=== PATIENT | female | born 1935 | race Caucasian/White ===

== ENCOUNTER 2018-05-04 19:18 | Emergency (ER) | payer MEDICARE, MEDICAID ==
[~2018-05-04] VITALS: Ht 157.5 cm; Wt 53.5 kg
[2018-05-04 19:20] VITALS: BP 220/103
== END 2018-05-04 20:30 | disposition left against medical advice (07) ==
LOC: EDBD 19:18 → ER 19:21
DX: R07.9 Chest pain, unspecified (principal); Z53.21 Procedure and treatment not carried out due to patient leaving prior to being seen by health care provider
CPT/HCPCS: 93005

== ENCOUNTER 2022-11-27 17:26 | Inpatient (IN) | payer MEDICARE, OTHER, MEDICAID ==
[~2022-11-27] VITALS: Ht 175.3 cm; Wt 54.1 kg
[2022-11-27] MEDS ORDERED: FUROSEMIDE 20 MG/2 ML VIAL IV ONE (17:45)
[2022-11-27 17:53] VITALS: PULSE 84; RESP 20; O2SAT 99
[2022-11-27 18:47] LABS: Calcium 8.9 mg/dL (8.5-10.1); Potassium 3.6 mmol/L (3.5-5.1)
[2022-11-27 18:49] LABS: BUN/Creatinine Ratio 28.6 (10.0-20.0)
[2022-11-27 18:51] LABS: Basophils # (auto) 0.1 10 ^3/uL (0-0.2); Basophils % (auto) 0.4 % (0.0-2.0); Eosinophils # (auto) 0.1 10 ^3/uL (0-0.8); Eosinophils % (auto) 0.8 % (0.0-7.0); Hematocrit 36.3 % (36.0-46.0); Hemoglobin 11.7 g/dL (12.2-16.2); Lymphocytes % (auto) 8.3 % (10.0-50.0); Mean Corpuscular Hgb Conc. 32.1 g/dL (32.0-36.0); Mean Corpuscular Volume 93.5 fL (80.0-100.0); Monocytes # (auto) 0.7 10 ^3/uL (0-1.3); Monocytes % (auto) 5.8 % (0.0-12.0); Neutrophils # (auto) 10.6 10 ^3/uL (1.6-8.6); Neutrophils % (auto) 84.7 % (37.0-80.0); Red Blood Cells 3.88 10^6/uL (4.0-5.20); Red Cell Distribution Width 14.4 % (11.8-14.3); White Blood Cell 12.5 10^3/uL (4.4-10.8)
[2022-11-27 18:51] LABS: Base Excess 14.5 mmol/L (-2.0-2.0)
[2022-11-27 18:52] LABS: Bilirubin, Total 0.3 mg/dL (0.2-1.0); Total Protein 6.7 g/dL (6.4-8.2)
[2022-11-27 18:59] LABS: Urine Bacteria NONE SEEN /hpf (None Seen); Urine Blood TRACE /uL (Negative); Urine Clarity Clear (Clear); Urine Protein, UAD TRACE (Negative); Urine Specific Gravity 1.009 (1.001-1.035); Urine Urobilinogen Normal (Negative); Urine WBC 1 /hpf (0 - 5)
[2022-11-27] MEDS ORDERED: cefTRIAXone 1GM/50ML D5W 50 ML IV ONE (19:00)
[2022-11-27] MEDS ORDERED: AZITHROMYCIN 500MG/ 250ML 250 ML IV ONE (19:00)
[2022-11-27 19:02] LABS: Urine Color Straw (Yellow)
[2022-11-27 19:30] VITALS: PULSE 82; RESP 12; O2SAT 93
[2022-11-27 20:37] LABS: Base Excess 16.7 mmol/L (-2.0-2.0)
[2022-11-27] MEDS ORDERED: ASPirin-EC 81 mg tab PO ONE (20:45)
[2022-11-27] MEDS ORDERED: IPRATROPIUM BROM 0.5 MG/2.5ML INH SOL NEB PRN (21:45)
[2022-11-27] MEDS ORDERED: ALBUTEROL SULF 2.5 MG/0.5ML(0.5%) NEB SOLN NEB PRN (21:45)
[2022-11-27] MEDS ORDERED: hydrALAZINE HCL 20 MG/ML VL IV PRN (21:45)
[2022-11-27] MEDS ORDERED: ONDANSETRON HCL 4 MG/2 ML VIAL IV PRN (21:45)
[2022-11-27] MEDS ORDERED: NITROGLYCERIN 0.4 MG SL TAB SL PRN (21:45)
[2022-11-27] MEDS ORDERED: ACETAMINOPHEN 325 MG TAB PO PRN (21:45)
[2022-11-27] MEDS ORDERED: MORPHINE SULFATE INJ 2 MG/ml SYRG IV PRN (21:45)
[2022-11-27 21:51] VITALS: BP 160/86; PULSE 80; RESP 14; TEMP 97.7; O2SAT 99
[2022-11-27 22:00] VITALS: BP 77/44; PULSE 62; O2SAT 95
[2022-11-27] MEDS ORDERED: ALBUMIN 25% 100 ML IV ONE (22:30)
[2022-11-27] MEDS ORDERED: SODIUM CHLORIDE 0.9% 500 ML IV ONE (22:30)
[2022-11-27] MEDS: CARVEDILOL 12.5 MG TAB PO SCH (22:38)
[2022-11-27] MEDS: SODIUM CHLOR 0.9% PF (SALINE LOCK) 10ML VIAL/SYR IV SCH (22:38)
[2022-11-27] MEDS: FAMOTIDINE (10MG/ML) 2ML VL IV SCH (22:49)
[2022-11-28] VITALS (11 sets, daily range): BP systolic 79–132; BP diastolic 41–73; PULSE 59–92; RESP 15–20; TEMP 98.4; O2SAT 89–97
[2022-11-28 04:20] LABS: Base Excess 17.6 mmol/L (-2.0-2.0)
[2022-11-28 05:01] LABS: Basophils # (auto) 0.1 10 ^3/uL (0-0.2); Basophils % (auto) 0.7 % (0.0-2.0); Eosinophils # (auto) 0.1 10 ^3/uL (0-0.8); Eosinophils % (auto) 0.5 % (0.0-7.0); Hematocrit 34.7 % (36.0-46.0); Hemoglobin 11.2 g/dL (12.2-16.2); Lymphocytes # (auto) 1.1 10 ^3/uL (0.4-5.4); Lymphocytes % (auto) 7.6 % (10.0-50.0); Mean Corpuscular Hemoglobin 30.2 pg (28.0-32.0); Mean Corpuscular Hgb Conc. 32.3 g/dL (32.0-36.0); Mean Corpuscular Volume 93.3 fL (80.0-100.0); Monocytes # (auto) 0.9 10 ^3/uL (0-1.3); Monocytes % (auto) 6.5 % (0.0-12.0); Neutrophils # (auto) 12.4 10 ^3/uL (1.6-8.6); Neutrophils % (auto) 84.7 % (37.0-80.0); Red Blood Cells 3.72 10^6/uL (4.0-5.20); White Blood Cell 14.6 10^3/uL (4.4-10.8)
[2022-11-28 05:19] LABS: Albumin 2.8 g/dL (3.4-5.0); Calcium 8.8 mg/dL (8.5-10.1); Potassium 3.3 mmol/L (3.5-5.1)
[2022-11-28 05:21] LABS: BUN/Creatinine Ratio 28.9 (10.0-20.0)
[2022-11-28 05:24] LABS: Bilirubin, Total 0.6 mg/dL (0.2-1.0); Total Protein 6.1 g/dL (6.4-8.2)
[2022-11-28] MEDS: SODIUM CHLOR 0.9% PF (SALINE LOCK) 10ML VIAL/SYR IV SCH ×3 (06:02→22:08)
[2022-11-28] MEDS: LEVOTHYROXINE SODIUM 112 MCG TAB PO SCH (07:06)
[2022-11-28 07:13] LABS: COVID19 ANTIGEN SOFIA FIA NEGATIVE (NEGATIVE); Respiratory Syncytial Virus Ag Negative
[2022-11-28 07:23] LABS: Rapid Influenza A Negative (Negative)
[2022-11-28 07:29] LABS: Rapid Influenza B Positive (Negative)
[2022-11-28] MEDS: cefTRIAXone 1GM/50ML D5W 50 ML IV SCH (09:11)
[2022-11-28] MEDS: CARVEDILOL 12.5 MG TAB PO SCH ×2 (10:42→22:00)
[2022-11-28] MEDS: DexAMETHasone SOD PHOS 10MG/1ML VIAL INJ IV SCH (10:51)
[2022-11-28] MEDS: AZITHROMYCIN 500MG/ 250ML 250 ML IV SCH (10:56)
[2022-11-28] MEDS: FAMOTIDINE (10MG/ML) 2ML VL IV SCH ×2 (10:56→22:22)
[2022-11-28] MEDS: FUROSEMIDE 20 MG/2 ML VIAL IV SCH (10:56)
[2022-11-28] MEDS: ASPirin 81 mg TAB PO SCH (10:56)
[2022-11-28] MEDS ORDERED: POTASSIUM EFFERVESENT TAB 25 MEQ PO ONE (15:15)
[2022-11-28] MEDS: IPRATROPIUM BROM 0.5 MG/2.5ML INH SOL NEB SCH ×2 (18:00→22:52)
[2022-11-28] MEDS: ALBUTEROL SULF 2.5 MG/0.5ML(0.5%) NEB SOLN NEB SCH ×2 (18:00→22:52)
[2022-11-28] MEDS: OSELTAMIVIR 30 MG CAP PO SCH (22:21)
[2022-11-28] MEDS: BUDESONIDE (INHALATION) 0.5 MG/2 ML NEB NEB SCH (22:56)
[2022-11-29] VITALS (20 sets, daily range): BP systolic 103–144; BP diastolic 54–82; PULSE 65–86; RESP 16–20; TEMP 97.1–98.4; O2SAT 90–99
[2022-11-29] MEDS ORDERED: MELATONIN 5 MG TAB PO ONE (00:45)
[2022-11-29] MEDS: IPRATROPIUM BROM 0.5 MG/2.5ML INH SOL NEB SCH ×6 (02:25→23:10)
[2022-11-29] MEDS: ALBUTEROL SULF 2.5 MG/0.5ML(0.5%) NEB SOLN NEB SCH ×6 (02:25→23:10)
[2022-11-29] MEDS ORDERED: GABA-339 PO (03:37)
[2022-11-29] MEDS ORDERED: LEVO112T4 PO (03:38)
[2022-11-29 06:32] LABS: Basophils # (auto) 0 10 ^3/uL (0-0.2); Basophils % (auto) 0.2 % (0.0-2.0); Eosinophils # (auto) 0 10 ^3/uL (0-0.8); Hematocrit 36.3 % (36.0-46.0); Hemoglobin 11.9 g/dL (12.2-16.2); Lymphocytes % (auto) 7.3 % (10.0-50.0); Mean Corpuscular Hemoglobin 30.1 pg (28.0-32.0); Mean Corpuscular Hgb Conc. 32.8 g/dL (32.0-36.0); Mean Corpuscular Volume 91.6 fL (80.0-100.0); Monocytes # (auto) 0.7 10 ^3/uL (0-1.3); Neutrophils # (auto) 12.5 10 ^3/uL (1.6-8.6); Neutrophils % (auto) 87.5 % (37.0-80.0); Red Blood Cells 3.96 10^6/uL (4.0-5.20); Red Cell Distribution Width 14.1 % (11.8-14.3); White Blood Cell 14.3 10^3/uL (4.4-10.8)
[2022-11-29] MEDS: LEVOTHYROXINE SODIUM 112 MCG TAB PO SCH (06:42)
[2022-11-29] MEDS: SODIUM CHLOR 0.9% PF (SALINE LOCK) 10ML VIAL/SYR IV SCH ×3 (06:45→22:00)
[2022-11-29 06:50] LABS: Calcium 9.4 mg/dL (8.5-10.1); Potassium 3.4 mmol/L (3.5-5.1)
[2022-11-29 06:58] LABS: BUN/Creatinine Ratio 24.5 (10.0-20.0)
[2022-11-29] MEDS: BUDESONIDE (INHALATION) 0.5 MG/2 ML NEB NEB SCH ×2 (07:14→19:01)
[2022-11-29] MEDS: cefTRIAXone 1GM/50ML D5W 50 ML IV SCH (09:51)
[2022-11-29] MEDS: FUROSEMIDE 20 MG/2 ML VIAL IV SCH (09:52)
[2022-11-29] MEDS: DexAMETHasone SOD PHOS 10MG/1ML VIAL INJ IV SCH (09:52)
[2022-11-29] MEDS: AZITHROMYCIN 500MG/ 250ML 250 ML IV SCH (09:53)
[2022-11-29] MEDS: FAMOTIDINE (10MG/ML) 2ML VL IV SCH ×2 (09:53→22:29)
[2022-11-29] MEDS: CARVEDILOL 12.5 MG TAB PO SCH ×2 (09:54→22:30)
[2022-11-29] MEDS: ASPirin 81 mg TAB PO SCH (09:54)
[2022-11-29] MEDS: OSELTAMIVIR 30 MG CAP PO SCH ×2 (13:51→22:30)
[2022-11-30] VITALS (15 sets, daily range): BP systolic 105–154; BP diastolic 50–87; PULSE 60–81; RESP 16–20; TEMP 97.8–98.7; O2SAT 91–98
[2022-11-30] MEDS: IPRATROPIUM BROM 0.5 MG/2.5ML INH SOL NEB SCH ×6 (02:00→21:53)
[2022-11-30] MEDS: ALBUTEROL SULF 2.5 MG/0.5ML(0.5%) NEB SOLN NEB SCH ×6 (02:00→21:53)
[2022-11-30] MEDS: HYDROcodone-ACET 5/325MG TAB PO PRN (03:49)
[2022-11-30] MEDS: SODIUM CHLOR 0.9% PF (SALINE LOCK) 10ML VIAL/SYR IV SCH ×3 (05:31→22:11)
[2022-11-30] MEDS: BUDESONIDE (INHALATION) 0.5 MG/2 ML NEB NEB SCH ×2 (06:00→18:08)
[2022-11-30] MEDS: LEVOTHYROXINE SODIUM 112 MCG TAB PO SCH (06:26)
[2022-11-30 06:37] LABS: Basophils # (auto) 0.1 10 ^3/uL (0-0.2); Basophils % (auto) 0.7 % (0.0-2.0); Eosinophils # (auto) 0 10 ^3/uL (0-0.8); Eosinophils % (auto) 0.1 % (0.0-7.0); Hematocrit 35.8 % (36.0-46.0); Hemoglobin 11.7 g/dL (12.2-16.2); Lymphocytes # (auto) 1.5 10 ^3/uL (0.4-5.4); Lymphocytes % (auto) 13.5 % (10.0-50.0); Mean Corpuscular Hgb Conc. 32.7 g/dL (32.0-36.0); Mean Corpuscular Volume 91.8 fL (80.0-100.0); Monocytes # (auto) 0.8 10 ^3/uL (0-1.3); Monocytes % (auto) 7.2 % (0.0-12.0); Neutrophils # (auto) 8.4 10 ^3/uL (1.6-8.6); Neutrophils % (auto) 78.5 % (37.0-80.0); Nucleated Red Blood Cells % 0.1 %; Red Cell Distribution Width 14.1 % (11.8-14.3); White Blood Cell 10.8 10^3/uL (4.4-10.8)
[2022-11-30 07:01] LABS: Calcium 9.3 mg/dL (8.5-10.1); Potassium 3.3 mmol/L (3.5-5.1)
[2022-11-30] MEDS: ASPirin 81 mg TAB PO SCH (09:45)
[2022-11-30] MEDS: CARVEDILOL 12.5 MG TAB PO SCH ×2 (09:46→22:00)
[2022-11-30] MEDS: FUROSEMIDE 20 MG/2 ML VIAL IV SCH (09:48)
[2022-11-30] MEDS: cefTRIAXone 1GM/50ML D5W 50 ML IV SCH (09:49)
[2022-11-30] MEDS: OSELTAMIVIR 30 MG CAP PO SCH ×2 (09:50→22:10)
[2022-11-30] MEDS ORDERED: DexAMETHasone SOD PHOS 10MG/1ML VIAL INJ IV SCH (10:00)
[2022-11-30] MEDS ORDERED: POTASSIUM EFFERVESENT TAB 25 MEQ PO ONE (13:45)
[2022-11-30] MEDS: AZITHROMYCIN 500MG/ 250ML 250 ML IV SCH (14:44)
[2022-11-30] MEDS: Ensure HIGH Protein Chocolate 8oz Bottle PO SCH (18:00)
[2022-11-30] MEDS: PANTOPRAZOLE 40 MG TAB PO SCH (19:49)
[2022-11-30] MEDS: GABAPENTIN 300 MG CAP PO SCH (22:10)
[2022-12-01] VITALS (10 sets, daily range): BP systolic 92–152; BP diastolic 57–89; PULSE 54–73; RESP 16–20; TEMP 97.8–98.5; O2SAT 90–97
[2022-12-01] MEDS: DOCUSATE SOD 100 MG CAP PO PRN ×2 (06:02→22:28)
[2022-12-01] MEDS: LEVOTHYROXINE SODIUM 112 MCG TAB PO SCH (06:02)
[2022-12-01] MEDS: GABAPENTIN 300 MG CAP PO SCH ×3 (06:02→22:28)
[2022-12-01] MEDS: SODIUM CHLOR 0.9% PF (SALINE LOCK) 10ML VIAL/SYR IV SCH ×3 (06:07→22:29)
[2022-12-01 06:31] LABS: Basophils # (auto) 0 10 ^3/uL (0-0.2); Basophils % (auto) 0.2 % (0.0-2.0); Eosinophils # (auto) 0 10 ^3/uL (0-0.8); Eosinophils % (auto) 0.4 % (0.0-7.0); Hematocrit 37.3 % (36.0-46.0); Hemoglobin 12.2 g/dL (12.2-16.2); Lymphocytes # (auto) 2.1 10 ^3/uL (0.4-5.4); Lymphocytes % (auto) 20.1 % (10.0-50.0); Mean Corpuscular Hgb Conc. 32.7 g/dL (32.0-36.0); Mean Corpuscular Volume 91.7 fL (80.0-100.0); Monocytes # (auto) 0.9 10 ^3/uL (0-1.3); Monocytes % (auto) 8.9 % (0.0-12.0); Neutrophils # (auto) 7.2 10 ^3/uL (1.6-8.6); Neutrophils % (auto) 70.4 % (37.0-80.0); Nucleated Red Blood Cells % 0.1 %; Red Blood Cells 4.07 10^6/uL (4.0-5.20); White Blood Cell 10.2 10^3/uL (4.4-10.8)
[2022-12-01 06:42] LABS: Potassium 3.8 mmol/L (3.5-5.1)
[2022-12-01 06:47] LABS: Albumin 2.6 g/dL (3.4-5.0); BUN/Creatinine Ratio 46.8 (10.0-20.0); Bilirubin, Total 0.4 mg/dL (0.2-1.0); Calcium 8.8 mg/dL (8.5-10.1); Total Protein 5.8 g/dL (6.4-8.2)
[2022-12-01] MEDS: ALBUTEROL SULF 2.5 MG/0.5ML(0.5%) NEB SOLN NEB SCH ×4 (07:33→14:38)
[2022-12-01] MEDS: IPRATROPIUM BROM 0.5 MG/2.5ML INH SOL NEB SCH ×4 (07:33→14:38)
[2022-12-01] MEDS: BUDESONIDE (INHALATION) 0.5 MG/2 ML NEB NEB SCH (07:33)
[2022-12-01] MEDS: Ensure HIGH Protein Chocolate 8oz Bottle PO SCH ×2 (08:00→18:00)
[2022-12-01] MEDS: PANTOPRAZOLE 40 MG TAB PO SCH (09:58)
[2022-12-01] MEDS: cefTRIAXone 1GM/50ML D5W 50 ML IV SCH (09:58)
[2022-12-01] MEDS: FUROSEMIDE 20 MG TAB PO SCH (09:59)
[2022-12-01] MEDS: AZITHROMYCIN 250 MG TAB PO SCH (10:00)
[2022-12-01] MEDS: predniSONE 20 MG TAB PO SCH (10:00)
[2022-12-01] MEDS: CARVEDILOL 12.5 MG TAB PO SCH ×2 (10:00→22:00)
[2022-12-01] MEDS: ASPirin 81 mg TAB PO SCH (10:11)
[2022-12-01] MEDS: OSELTAMIVIR 30 MG CAP PO SCH ×2 (10:11→22:28)
[2022-12-01 11:45] LABS: Free T3 2.02 pg/mL (2.3-4.2); Free T4 (Free Thyroxine) 1.08 ng/dL (0.89-1.76)
[2022-12-01] MEDS ORDERED: IPRATROPIUM BROM 0.5 MG/2.5ML INH SOL NEB PRN (18:45)
[2022-12-01] MEDS ORDERED: ALBUTEROL SULF 2.5 MG/0.5ML(0.5%) NEB SOLN NEB PRN (18:45)
[2022-12-02] VITALS (7 sets, daily range): BP systolic 120–139; BP diastolic 75–88; PULSE 47–73; RESP 17–20; TEMP 97.8–98.6; O2SAT 90–97
[2022-12-02] MEDS: GABAPENTIN 300 MG CAP PO SCH ×3 (05:59→22:11)
[2022-12-02] MEDS: SODIUM CHLOR 0.9% PF (SALINE LOCK) 10ML VIAL/SYR IV SCH ×3 (05:59→22:00)
[2022-12-02] MEDS: LEVOTHYROXINE SODIUM 112 MCG TAB PO SCH (06:00)
[2022-12-02 06:54] LABS: Potassium 3.7 mmol/L (3.5-5.1)
[2022-12-02 07:08] LABS: Albumin 2.6 g/dL (3.4-5.0); BUN/Creatinine Ratio 47.3 (10.0-20.0); Bilirubin, Total 0.4 mg/dL (0.2-1.0); Calcium 9.1 mg/dL (8.5-10.1); Magnesium 2.3 mg/dL (1.6-2.6); Total Protein 6.2 g/dL (6.4-8.2)
[2022-12-02] MEDS: Ensure HIGH Protein Chocolate 8oz Bottle PO SCH ×2 (08:00→18:00)
[2022-12-02] MEDS ORDERED: LACTULOSE 20Gm/30ML SOLN PO ONE (08:15)
[2022-12-02 08:18] LABS: Basophils # (auto) 0.1 10 ^3/uL (0-0.2); Basophils % (auto) 0.7 % (0.0-2.0); Eosinophils # (auto) 0 10 ^3/uL (0-0.8); Eosinophils % (auto) 0.3 % (0.0-7.0); Hematocrit 39.1 % (36.0-46.0); Hemoglobin 12.7 g/dL (12.2-16.2); Lymphocytes % (auto) 25.9 % (10.0-50.0); Mean Corpuscular Hgb Conc. 32.4 g/dL (32.0-36.0); Mean Corpuscular Volume 92.5 fL (80.0-100.0); Monocytes # (auto) 0.7 10 ^3/uL (0-1.3); Monocytes % (auto) 9.2 % (0.0-12.0); Neutrophils # (auto) 4.9 10 ^3/uL (1.6-8.6); Neutrophils % (auto) 63.9 % (37.0-80.0); Nucleated Red Blood Cells % 0.2 %; Red Blood Cells 4.23 10^6/uL (4.0-5.20); Red Cell Distribution Width 14.2 % (11.8-14.3); White Blood Cell 7.7 10^3/uL (4.4-10.8)
[2022-12-02] MEDS ORDERED: POTASSIUM EFFERVESENT TAB 25 MEQ PO ONE (08:30)
[2022-12-02] MEDS: cefTRIAXone 1GM/50ML D5W 50 ML IV SCH (09:00)
[2022-12-02] MEDS: OSELTAMIVIR 30 MG CAP PO SCH ×2 (09:30→22:11)
[2022-12-02] MEDS: ASPirin 81 mg TAB PO SCH (09:30)
[2022-12-02] MEDS: FUROSEMIDE 20 MG TAB PO SCH (09:31)
[2022-12-02] MEDS: AZITHROMYCIN 250 MG TAB PO SCH (09:32)
[2022-12-02] MEDS: predniSONE 20 MG TAB PO SCH (09:32)
[2022-12-02] MEDS: PANTOPRAZOLE 40 MG TAB PO SCH (09:32)
[2022-12-02] MEDS: CARVEDILOL 12.5 MG TAB PO SCH ×2 (11:35→22:00)
[2022-12-02] MEDS: HYDROcodone-ACET 5/325MG TAB PO PRN (22:11)
[2022-12-03] MEDS ORDERED: TEMAZEPAM 15 MG CAP PO ONE (00:15)
[2022-12-03 05:00] VITALS: BP 143/77; PULSE 70; RESP 18; TEMP 98; O2SAT 93
[2022-12-03] MEDS: SODIUM CHLOR 0.9% PF (SALINE LOCK) 10ML VIAL/SYR IV SCH ×2 (06:00→14:00)
[2022-12-03] MEDS: GABAPENTIN 300 MG CAP PO SCH ×2 (06:09→14:00)
[2022-12-03] MEDS: LEVOTHYROXINE SODIUM 112 MCG TAB PO SCH (06:09)
[2022-12-03] MEDS: HYDROcodone-ACET 5/325MG TAB PO PRN ×2 (06:10→10:38)
[2022-12-03 06:23] LABS: Basophils # (auto) 0 10 ^3/uL (0-0.2); Basophils % (auto) 0.2 % (0.0-2.0); Eosinophils # (auto) 0.1 10 ^3/uL (0-0.8); Eosinophils % (auto) 0.6 % (0.0-7.0); Hematocrit 38.8 % (36.0-46.0); Hemoglobin 12.8 g/dL (12.2-16.2); Lymphocytes # (auto) 2.2 10 ^3/uL (0.4-5.4); Lymphocytes % (auto) 23.8 % (10.0-50.0); Mean Corpuscular Hemoglobin 30.3 pg (28.0-32.0); Mean Corpuscular Hgb Conc. 33.1 g/dL (32.0-36.0); Mean Corpuscular Volume 91.8 fL (80.0-100.0); Monocytes # (auto) 0.8 10 ^3/uL (0-1.3); Monocytes % (auto) 8.1 % (0.0-12.0); Neutrophils # (auto) 6.3 10 ^3/uL (1.6-8.6); Neutrophils % (auto) 67.3 % (37.0-80.0); Red Blood Cells 4.23 10^6/uL (4.0-5.20); Red Cell Distribution Width 13.8 % (11.8-14.3); White Blood Cell 9.4 10^3/uL (4.4-10.8)
[2022-12-03 06:28] LABS: Potassium 3.2 mmol/L (3.5-5.1)
[2022-12-03 06:37] LABS: Albumin 2.7 g/dL (3.4-5.0); BUN/Creatinine Ratio 74.2 (10.0-20.0); Bilirubin, Total 0.3 mg/dL (0.2-1.0); Total Protein 6.4 g/dL (6.4-8.2)
[2022-12-03] MEDS ORDERED: POTASSIUM EFFERVESENT TAB 25 MEQ PO ONE (07:30)
[2022-12-03 08:00] VITALS: PULSE 73; RESP 18; O2SAT 92
[2022-12-03] MEDS ORDERED: predniSONE 20 MG TAB PO SCH (10:00)
[2022-12-03] MEDS: cefTRIAXone 1GM/50ML D5W 50 ML IV SCH (10:32)
[2022-12-03] MEDS: PANTOPRAZOLE 40 MG TAB PO SCH (10:33)
[2022-12-03] MEDS: AZITHROMYCIN 250 MG TAB PO SCH (10:33)
[2022-12-03] MEDS: OSELTAMIVIR 30 MG CAP PO SCH (10:33)
[2022-12-03] MEDS: ASPirin 81 mg TAB PO SCH (10:33)
[2022-12-03] MEDS: CARVEDILOL 12.5 MG TAB PO SCH (10:34)
[2022-12-03] MEDS: FUROSEMIDE 20 MG TAB PO SCH (10:34)
[2022-12-03] MEDS: Ensure HIGH Protein Chocolate 8oz Bottle PO SCH (10:39)
[2022-12-03 14:23] VITALS: BP 104/68; PULSE 72; TEMP 36.7
== END 2022-12-03 15:40 | DRG 871 ==
LOC: EDUNIT# 17:26 → ER 17:26 → EDBD 17:26 → TELE 21:44 → TELE-CENTR 11-28 22:32 → CENTRAL 12-02 14:23
PROVIDERS: ADMIT Internal Medicine; ATTEND Student in an Organized Health Care Education/Training Program
PROC: 5A09357 Assistance with Respiratory Ventilation, Less than 24 Consecutive Hours, Continuous Positive Airway Pressure (ICD-10-PCS; principal; 2022-11-27)
DX: A41.89 Other specified sepsis (principal); J10.08 Influenza due to other identified influenza virus with other specified pneumonia; J96.21 Acute and chronic respiratory failure with hypoxia; J12.9 Viral pneumonia, unspecified; J96.22 Acute and chronic respiratory failure with hypercapnia; J44.1 Chronic obstructive pulmonary disease with (acute) exacerbation; E44.0 Moderate protein-calorie malnutrition; Z68.1 Body mass index [BMI] 19.9 or less, adult; J44.0 Chronic obstructive pulmonary disease with (acute) lower respiratory infection; Z20.822 Contact with and (suspected) exposure to COVID-19; I25.10 Atherosclerotic heart disease of native coronary artery without angina pectoris; E87.6 Hypokalemia; E03.9 Hypothyroidism, unspecified; F31.9 Bipolar disorder, unspecified; L89.152 Pressure ulcer of sacral region, stage 2; G89.29 Other chronic pain; K59.00 Constipation, unspecified
CPT/HCPCS: 36415; 36600; 71045; 80048; 80053; 81001; 82805; 83735; 83880; 84439; 84443; 84481; 84484; 85025; 87426; 87804; 87807; 93005; 94640; 94660; 96365; 96367; 96368; 96375; 97110; 97116; 97163; 97530; G0378; G9035; J0696; J1100; J3490; P9047